=== PATIENT | female | born 1985 | race Caucasian/White ===

== ENCOUNTER 2017-07-08 15:44 | Emergency (ER) | payer MEDICAID ==
[2017-07-08 17:56] LABS: microscopic required? YES; urine erythrocyte NEGATIVE (NEGATIVE)
[2017-07-08 17:57] LABS: BASOPHIL % 0.7 % (0-2); PLATELET COUNT 355 x10^3mcL (130-400); RED CELL DISTRIBUTION WIDTH 12.8 % (11.5-14.5)
[2017-07-08 18:02] LABS: CALCIUM 8.7 mg/dL (8.5-10.1); CHLORIDE SERUM 101 mmol/L (98-107); CREATININE SERUM 0.6 mg/dL (0.6-1.0); GFR1 > 60 mL/min; GLUCOSE SERUM 86 mg/dL (74-106); POTASSIUM SERUM 3.3 mmol/L (3.5-5.1); SODIUM SERUM 139 mmol/L (136-145)
[2017-07-08 18:07] LABS: ALBUMIN 4.2 g/dL (3.4-5.0); ALKALINE PHOSPHATASE 61 U/L (46-116); ALT/SGPT 15 U/L (14-59); AMYLASE 83 U/L (25-115); AST/SGOT 11 U/L (15-37); BILIRUBIN TOTAL 0.4 mg/dL (0.20-1.00); LIPASE 240 IU/L (73-393); TOTAL PROTEIN, SERUM 8.3 g/dL (6.4-8.2)
[2017-07-08 20:58] VITALS: BP 104/58
== END 2017-07-08 20:58 | disposition home or self-care (01) ==
LOC: ED 15:44
PROVIDERS: Emergency Medicine
DX: R10.30 Lower abdominal pain, unspecified (principal); Z98.51 Tubal ligation status
CPT/HCPCS: J1170; J1885; J2405; J7030